=== PATIENT | male | born 1980 | race Caucasian/White ===

== ENCOUNTER 2019-08-18 08:59 | Emergency (ER) | payer SELFPAY ==
[~2019-08-18] VITALS: Ht 175.2 cm; Wt 104.3 kg
[~2019-08-18 08:59] MED LIST: AUGMENTIN 875875 MG PO; AUGMENTIN XR 101 TER PO; BACTRIM DS 8001 TA1 PO; CLEOCIN150 MG PO; CLINDAMYCIN HC300 MG PO; DARVOCET N 1001 TAB PO; FLAGYL500 MG PO; HYDROCODONE BIT1 T11 PO; IBU800 M1 PO; NO DAILY MEDS; PERCOCET 325 MG1 TA2 PO; SEPTRA DS 800 M1 TAB PO; VIBRAMYCIN100 MG PO; VICODIN 5/500 505 MG PO; VICODIN 500 MG-1 TAB PO; ZITHROMAX Z PA250 MG PO; Zofran4 MG PO
[2019-08-18] MEDS ORDERED: AUGMENTIN 875-875 MG PO (09:17)
== END 2019-08-18 09:32 | disposition home or self-care (01) ==
LOC: ED 08:59
DX: S61.031A Puncture wound without foreign body of right thumb without damage to nail, initial encounter (principal); Z91.030 Bee allergy status; Z88.1 Allergy status to other antibiotic agents; Z79.899 Other long term (current) drug therapy; W53.11XA Bitten by rat, initial encounter; Y93.89 Activity, other specified; Y92.098 Other place in other non-institutional residence as the place of occurrence of the external cause; Y99.8 Other external cause status

== ENCOUNTER 2021-11-17 19:58 | Emergency (ER) | payer BC ==
[~2021-11-17 19:58] MED LIST changes: +AUGMENTIN 875-875 MG PO
[2021-11-17 21:23] LABS: BILIRUBIN Negative (Negative); BLOOD 2+ (Negative); CLARITY Clear (Clear); COLOR Yellow (Yellow); GLUCOSE Negative (Negative); KETONE Trace (Negative); LEUKO ESTERASE Negative (Negative); NITRITE Negative (Negative); SPECIFIC GRAVITY >= 1.030 (1.001-1.030)
[2021-11-17 21:33] LABS: BACTERIA 2+
[2021-11-17 21:34] LABS: EPITHELIAL CELLS 0-2; MUCOUS 3+
[2021-11-17] MEDS ORDERED: PERCOCET 5-3251 EACH PO (22:57)
== END 2021-11-18 01:50 | disposition home or self-care (01) ==
LOC: ED 19:58
PROVIDERS: Emergency Medicine
DX: S22.32XA Fracture of one rib, left side, initial encounter for closed fracture (principal); S50.312A Abrasion of left elbow, initial encounter; R31.9 Hematuria, unspecified; M54.9 Dorsalgia, unspecified; R07.81 Pleurodynia; Z91.030 Bee allergy status; Z88.1 Allergy status to other antibiotic agents; Z90.89 Acquired absence of other organs; Z98.890 Other specified postprocedural states; W00.2XXA Other fall from one level to another due to ice and snow, initial encounter; Y93.89 Activity, other specified; Y92.89 Other specified places as the place of occurrence of the external cause; Y99.8 Other external cause status

== ENCOUNTER → 2021-12-21 | Outpatient (CLI) | payer BC ==
[~2021-12-21] MED LIST changes: +PERCOCET 5-3251 EACH PO
[2021-12-21 08:40] LABS: BASO % 0.4 % (0.0-1.0); EOS # 0.2 10*3/uL (0.0-0.4); HEMATOCRIT 43.3 % (42.0-52.0); LYMPH # 2.8 10*3/uL (1.3-4.4); LYMPH % 29.4 % (27.0-41.0); MEAN CELL VOLUME 84.2 fl (80.0-94.0); MEAN CORPUSCULAR HGB CONC 34.4 g/dl (33.0-37.0); MEAN PLATELET VOLUME 9.5 fl (9.6-12.3); MONO # 0.7 10*3/uL (0.1-1.0); MONO % 7.1 % (3.0-9.0); NEUT # 5.7 10*3/uL (2.3-7.9); NEUT % 60.8 % (47.0-73.0); PLATELET COUNT AUTOMATED 339 10*3/uL (130-400); RED BLOOD COUNT 5.14 10*6/uL (4.50-5.90); RED CELL DISTRI WIDTH 12.3 % (0-14.5); WHITE BLOOD COUNT 9.4 10*3/uL (4.8-10.8)
[2021-12-21 08:42] LABS: BILIRUBIN Negative (Negative); BLOOD 2+ (Negative); CLARITY Clear (Clear); COLOR Yellow (Yellow); GLUCOSE Negative (Negative); KETONE Trace (Negative); LEUKO ESTERASE Negative (Negative); NITRITE Negative (Negative); PH 5.5 (4.5-8.0)
[2021-12-21 09:06] LABS: ALKALINE PHOSPHATASE 89 U/L (45-117); BUN 11 mg/dl (7-24); CHLORIDE 106 mmol/L (98-107); CHOLESTEROL 252 mg/dL (<200); CREATININE 0.99 mg/dL (0.70-1.30); LDL CHOLESTEROL 179 mg/dL (9-159); POTASSIUM 3.9 mmol/L (3.5-5.1); SGOT/AST 15 IU/L (3-35); SGPT/ALT 37 U/L (12-78); SODIUM 136 mmol/L (136-145); TOTAL PROTEIN 8.1 gm/dL (6.4-8.2); TRIGLYCERIDES 116 mg/dl (<150)
== END | disposition home or self-care (01) ==
LOC: LAB 08:10
PROVIDERS: ATTEND Nurse Practitioner Family
DX: S22.39XD Fracture of one rib, unspecified side, subsequent encounter for fracture with routine healing (principal); M77.8 Other enthesopathies, not elsewhere classified; M25.522 Pain in left elbow; Z86.39 Personal history of other endocrine, nutritional and metabolic disease; J30.9 Allergic rhinitis, unspecified; W19.XXXD Unspecified fall, subsequent encounter

== ENCOUNTER → 2021-12-26 | Outpatient (CLI) | payer BC | END | disposition home or self-care (01) | LOC: CT 16:00 | PROVIDERS: ATTEND Nurse Practitioner Family | DX: K40.90 Unilateral inguinal hernia, without obstruction or gangrene, not specified as recurrent (principal); R91.1 Solitary pulmonary nodule ==